=== PATIENT | female | born 1970 | race Caucasian/White ===

== ENCOUNTER 2018-04-19 06:31 | Observation (INO) ==
[2018-04-20] MEDS ORDERED: MethylPREDNISolone Sod Succinate Inj 125 MG/2 ML Vial ONE (00:02)
[2018-04-20] MEDS ORDERED: diazePAM 5 MG Tablet PO PRN (02:54)
[2018-04-20] MEDS ORDERED: Bisacodyl 10 MG Supp RECTAL PRN (03:07)
[2018-04-20] MEDS ORDERED: Dextrose 50% in Water 50 ML Vial IV.PUSH PRN (03:09)
[2018-04-20] MEDS: MethylPREDNISolone Sod Succinate Inj 125 MG/2 ML Vial IV.PUSH SCH ×3 (07:07→17:55)
[2018-04-20] MEDS: guaiFENesin 600 MG ER Tablet PO SCH ×2 (08:26→22:06)
[2018-04-20] MEDS: Lisinopril 20 MG Tablet PO SCH (08:26)
[2018-04-20] MEDS: Senna/Docusate Sodium 8.6/50 MG Tablet PO SCH ×2 (08:26→22:05)
[2018-04-20] MEDS: Budesonide-Formoterol 160/4.5 MCG 6 GM Inhaler INH SCH ×2 (08:28→22:07)
--- NOTE | 2018-04-20 08:40 | P.PN ---
Subjective Interval history: Follow up for COPD exacerbation. The patient reports feeling slightly better today however still not back to baseline. She reports continue cough, now nonproductive and dry. She reports mild shortness of breath, worse with exertion. She reports continued wheezing. O2 sat has been stable on room air. Denies any chest pain. Denies any other medical complaints at this time. Physical Exam Vital signs: Vital Signs 04/20/18 03:40 04/20/18 04:35 04/20/18 07:29 Temperature 97.5 F L Pulse Rate 71 98 H 98 H Respiratory Rate 16 20 20 Blood Pressure 138/72 Pulse Oximetry 93 L Intake & Output 04/19/18 04/20/18 04/20/18 18:59 06:59 18:59 Weight 125 kg Narrative: GENERAL: Well-nourished, well-developed obese female patient in [facility]. SKIN: Warm and dry. No rash. HEENT: Normocephalic. Atraumatic. Pupils equal and round. Mucous membranes pink and moist. CARDIOVASCULAR: Regular rate and rhythm. No murmur appreciated. RESPIRATORY: No accessory muscle use. Diffuse expiratory wheezing, scattered rhonchi, with diminished breath sounds throughout. Breath sounds equal bilaterally. GASTROINTESTINAL: Abdomen soft, non-tender, nondistended. Normoactive bowel sounds x4. MUSCULOSKELETAL: No obvious deformities. Extremities without clubbing, cyanosis , or edema. NEUROLOGICAL: Awake and alert. No obvious cranial nerve deficits. Motor grossly within normal limits. Normal speech. PSYCHIATRIC: Appropriate mood and affect; insight and judgment normal. Results - Labs CBC & Chem 7: 04/19/18 05:00 04/19/18 05:00 Labs: Laboratory Results - last 24 hr 04/19/18 04/19/18 04/19/18 05:00 05:00 05:00 WBC 8.5 RBC 4.48 Hgb 12.4 Hct 36.2 MCV 80.8 MCH 27.7 MCHC 34.2 RDW 14.3 Plt Count 319 MPV 6.9 L Neut % (Auto) 47.4 Lymph % (Auto) 38.4 [place] % (Auto) 7.1 Eos % (Auto) 6.3 H Baso % (Auto) 0.8 Neut # (Auto) 4.0 Lymph # (Auto) 3.3 [place] # (Auto) 0.6 Eos # (Auto) 0.5 H Baso # (Auto) 0.1 CBC Comment DIFF FINAL Sodium 144 Potassium 3.4 L Chloride 110 H Carbon Dioxide 23.6 Anion Gap 10 BUN 6 L Creatinine 0.60 Estimated GFR 107 Random Glucose 144 H Calcium 8.9 Total Bilirubin 0.4 AST 19 ALT 24 Alkaline Phosphatase 64 B-Natriuretic Peptide 40 Total Protein 6.6 Albumin 2.9 L - Imaging Imagin04/19/18 - CXR with no acute findings Assessment and Plan - Plan 47-year-old female with history of COPD, HTN, DM, JEVON, seizures, anxiety, bipolar disorder, seasonal allergies, presents with 2-3 days of worsening shortness of breath and cough. Acute COPD exacerbation: Patient tachypneic with RR 26 and O2 sat 93% upon arrival. Afebrile, no leukocytosis, however with purulent yellow-green sputum. -CXR images reviewed, no acute findings -With purulent productive cough, will give antibiotics with doxycycline ( allergies to levaquin and azithro) -Continue steroids with IV Solu-Medrol 60mg q6h -Continue duo nebs q4h and q2h prn -Continue Symbicort bid -Mucinex bid, Robitussin prn cough -Incentive spirometry, Acapella -Check sputum culture Hypertension: not well controlled, likely secondary to running out of medications -restart patient's lisinopril 20mg daily -clonidine prn -monitor BP, adjust antihypertensives as needed Diabetes Mellitus, Insulin Dependent: chronic, expect higher blood glucose on steroids -continue patient's levemir 10u sq hs -Monitor Accu-checks and cover with Medium dose SSI -diabetic diet -hypoglycemia protocol Bipolar/Anxiety: chronic -restart patient's home meds including effexor, seroquel, trazodone, valium prn -discussed with the patient importance of obtaining f/up as outpatient with PCP, will refer to [facility] JEVON: Chronic, however patient did not bring her CPAP from [place] -Recommend outpatient follow-up with pulmonology -O2 as needed Seasonal allergies: Chronic -Continue patient's cetirizine DVT prophylaxis: Lovenox Discharge Planning: Discharge pending further clinical improvement, not yet ready for discharge.
[2018-04-20] MEDS: Insulin NovoLOG Aspart Correctional Sugar Inj SQ SCH ×4 (09:05→22:02)
[2018-04-20] MEDS ORDERED: Pneumococcal-23 Polyvalent Vaccine Inj 25 MCG/0.5 ML Syringe IM ONE (10:00)
[2018-04-20 13:54] LABS: Baso % (Auto) 0.3 % (0.0-2.0); Hematocrit 35.9 % (35.0-46.0); Lymph # (Auto) 0.7 th/mm3 (1.0-4.8); Lymph % (Auto) 4.7 % (9.0-44.0); Mean Corpuscular HGB Conc 33.5 % (32.0-36.0); Mean Corpuscular Hemoglobin 27.5 pg (27.0-34.0); Mean Corpuscular Volume 82.1 fL (80.0-100.0); Mean Platelet Volume 7.3 fL (7.0-11.0); Mono # (Auto) 0.6 th/mm3 (0.0-0.9); Mono % (Auto) 4.1 % (0.0-8.0); Neut # (Auto) 12.7 th/mm3 (1.8-7.7); Neut % (Auto) 90.9 % (16.0-70.0); Platelet Count 302 th/mm3 (150-450); Red Blood Count 4.38 mil/mm3 (4.00-5.30); Red Cell Distribution Width 14.7 % (11.6-17.2); White Blood Count 13.9 th/mm3 (4.0-11.0)
[2018-04-20 15:02] VITALS: RESP 18
[2018-04-20 15:27] LABS: Anion Gap 14 meq/L (5-15); Aspartate Aminotransferase 15 U/L (15-37); Blood Urea Nitrogen 9 mg/dL (7-18); Carbon Dioxide 17.6 meq/L (21.0-32.0); Chloride 108 meq/L (98-107); Glomerular Filtration Rate 67 mL/min (>89); Glucose,Random 300 mg/dL (74-106); Potassium 3.7 meq/L (3.5-5.1); Sodium 140 meq/L (136-145)
[2018-04-20 15:28] LABS: Alanine Aminotransferase 26 U/L (10-53); Albumin 2.9 g/dL (3.4-5.0); Alkaline Phosphatase 65 U/L (45-117); Total Protein 6.6 g/dL (6.4-8.2)
[2018-04-20] MEDS: Acetaminophen 325 MG Tablet PO PRN (17:56)
[2018-04-20] MEDS ORDERED: Enoxaparin Inj 40 MG/0.4 ML Syringe SQ SCH (21:00)
[2018-04-20] MEDS ORDERED: Venlafaxine XR 75 MG Capsule PO SCH (21:00)
[2018-04-20] MEDS ORDERED: traZODone 50 MG Tablet PO SCH (21:00)
[2018-04-20] MEDS ORDERED: Insulin Detemir Inj 1,000 UNIT/10 ML Vial SQ SCH (21:00)
[2018-04-21] MEDS: MethylPREDNISolone Sod Succinate Inj 125 MG/2 ML Vial IV.PUSH SCH ×2 (00:51→05:53)
[2018-04-21] MEDS: Acetaminophen 325 MG Tablet PO PRN (08:45)
[2018-04-21] MEDS: Lisinopril 20 MG Tablet PO SCH (08:46)
[2018-04-21] MEDS: guaiFENesin 600 MG ER Tablet PO SCH (08:46)
[2018-04-21] MEDS: Budesonide-Formoterol 160/4.5 MCG 6 GM Inhaler INH SCH (08:46)
[2018-04-21] MEDS: Senna/Docusate Sodium 8.6/50 MG Tablet PO SCH (08:46)
[2018-04-21] MEDS: Insulin NovoLOG Aspart Correctional Sugar Inj SQ SCH (08:47)
--- NOTE | 2018-04-21 15:17 | P.DS ---
Date of admission: 04/19/18 06:32 Primary care physician: UNKNOWN Anticipated date of discharge: 04/21/18 Brief History from admission: 47-year-old female with history of COPD, HTN, DM, JEVON, seizures, anxiety, bipolar disorder, seasonal allergies, presents with 2-3 days of worsening shortness of breath and cough. The patient reports she just moved here from [place] with her daughter. She recently ran out of all of her medications. A few days ago she started to notice worsening shortness of breath, wheezing, and cough productive of yellow-green sputum. Denies fevers/chills, congestion, rhinitis, or sore throat. Denies any chest pain, orthopnea, or lower extremity edema. States she is supposed to be on Advair, albuterol inhalers, and previously had oxygen as needed. She states when she left [place], they also did not allow her to bring her CPAP on the plane. She is currently staying at a [facility] with her daughter. She states she has access to someone else's nebulizer machine, but does not have her own. She is requesting refills of all of her medications. She does not have a PCP or flaker tender in the area. She quit smoking 2 years ago however is exposed to a lot of secondhand smoke at this usp. She has no other medical complaints at this time. DS: Diagnosis - Discharge Diagnosis (1) COPD exacerbation Status: Acute DS: Medications - Discharge Medications Prescriptions: albuterol sulfate [Proventil HFA] 2 puff INHALATION Q6H PRN #1 inh PRN Reason: Shortness Of Breath budesonide-formoterol [Symbicort] 2 puff INH Q12HR #1 inh doxycycline hyclate 100 mg PO BID 6 Days #12 cap lisinopril 20 mg PO DAILY #30 tab prednisone [Deltasone] 20 mg PO DIRECTED #21 tab quetiapine 300 mg PO HS #30 tab tiotropium bromide [Spiriva with HandiHaler] 1 cap INHALATION DAILY 30 Days #1 inh trazodone 50 mg PO HS #30 tab venlafaxine 75 mg PO HS #30 tab DS: Summary Hospital Course: 47-year-old female with history of COPD, HTN, DM, JEVON, seizures, anxiety, bipolar disorder, seasonal allergies, presents with 2-3 days of worsening shortness of breath and cough. Acute COPD exacerbation: Patient tachypneic with RR 26 and O2 sat 93% upon arrival. Afebrile, no leukocytosis, however with purulent yellow-green sputum. CXR images reviewed, no acute findings. With purulent productive cough, will give antibiotics with doxycycline (allergies to levaquin and azithro). Continue steroids with IV Solu-Medrol 60mg q6h. Continue duo nebs q4h and q2h prn. Continue Symbicort bid. Mucinex bid, Robitussin prn cough. Incentive spirometry , Acapella. Symptoms much improved throughout admission. O2 sat stable on room air. Ready for discharge. Case management to assist with filling prescriptions prior to discharge. Hypertension: not well controlled, likely secondary to running out of medications. Restart patient's lisinopril 20mg daily. Clonidine prn. Monitor BP , adjust antihypertensives as needed. Stable. F/up with PCP. Diabetes Mellitus, Insulin Dependent: chronic, expect higher blood glucose on steroids. Continue patient's levemir 10u sq hs. Monitor Accu-checks and cover with Medium dose SSI. Diabetic diet. Hypoglycemia protocol. F/up with PCP. Bipolar/Anxiety: chronic. Restart patient's home meds including effexor, seroquel, trazodone, valium prn. Discussed with the patient importance of obtaining f/up as outpatient with PCP, will refer to [facility]. JEVON: Chronic, however patient did not bring her CPAP from [place]. Recommend outpatient follow-up with pulmonology. O2 as needed. Seasonal allergies: Chronic. Continue patient's cetirizine Noncompliance: patient out of all medications. Again thoroughly counseled on following up with PCP and taking medications as prescribed. Case management consulted and was able to provide filled prescriptions for the patient at discharge. - Time Spent with Patient Total time spent providing and/or coordinating discharge services: Greater than 30 minutes Exam Vital signs: Vital Signs 04/20/18 15:01 04/20/18 22:31 04/21/18 00:16 Temperature 98.7 F Pulse Rate 78 83 105 H Respiratory Rate 18 17 16 Blood Pressure 145/71 H Pulse Oximetry 94 L 04/21/18 01:27 04/21/18 05:18 04/21/18 07:28 Temperature 98.4 F 98.9 F 97.4 F L Pulse Rate 80 82 80 Respiratory Rate 16 16 18 Blood Pressure 150/80 H 116/57 L 145/102 H Pulse Oximetry 93 L 94 L 98 04/21/18 07:48 04/21/18 12:16 Temperature 97.6 F Pulse Rate 84 79 Respiratory Rate 17 18 Blood Pressure 174/97 H Pulse Oximetry 97 Intake & Output 04/20/18 04/21/18 04/21/18 18:59 06:59 18:59 Weight 114.4 kg Other: # Voids 4 Date of Last Bowel Movement 04/20/18 04/21/18 Narrative: GENERAL: Well-nourished, well-developed obese female patient in [facility]. SKIN: Warm and dry. No rash. HEENT: Normocephalic. Atraumatic. Pupils equal and round. Mucous membranes pink and moist. CARDIOVASCULAR: Regular rate and rhythm. No murmur appreciated. RESPIRATORY: No accessory muscle use. Clear to auscultation today, much improved. Breath sounds equal bilaterally. GASTROINTESTINAL: Abdomen soft, non-tender, nondistended. Normoactive bowel sounds x4. MUSCULOSKELETAL: No obvious deformities. Extremities without clubbing, cyanosis , or edema. NEUROLOGICAL: Awake and alert. No obvious cranial nerve deficits. Motor grossly within normal limits. Normal speech. PSYCHIATRIC: Appropriate mood and affect; insight and judgment normal. Results Procedures completed during hospitalization: None. Labs on day of discharge: Labs from last 24 hours 04/21/18 04/20/18 04/20/18 08:25 21:56 12:23 Sodium 140 Potassium 3.7 Chloride 108 H Carbon Dioxide 17.6 L Anion Gap 14 BUN 9 Creatinine 0.90 Estimated GFR 67 L POC Glucose 186 H 349 H Random Glucose 300 H Calcium 9.0 Total Bilirubin 0.2 AST 15 ALT 26 Alkaline Phosphatase 65 Total Protein 6.6 Albumin 2.9 L Discharge Plan - Discharge Disposition Patient Disposition: Discharge Home - Discharge Condition Condition: Stable - Discharge Order Discharge Orders: Discharge Order (Routine); Ordered 04/21/18 Ordered By: Alicia Chatterjee - Discharge Details Anticipated Discharge Date: 04/21/18 Discharge Comment: Ok to discharge after seen by case management. - Physicians Team Primary Care Provider: UNKNOWN, Attending Provider: Padma Mahoney - Rxs /Orders / Referrals /Forms Prescriptions: New budesonide-formoterol [Symbicort] 160-4.5 mcg/actuation Hfa Aerosol Inhaler 2 puff INH Q12HR Qty: 1 RF: 2 doxycycline hyclate 100 mg Capsule 100 mg PO BID 6 Days Qty: 12 RF: 0 prednisone [Deltasone] 20 mg Tablet 20 mg PO DIRECTED Qty: 21 RF: 0 Continue albuterol sulfate [Proventil HFA] 90 mcg/actuation Hfa Aerosol Inhaler 2 puff INHALATION Q6H PRN (Reason: Shortness Of Breath) Qty: 1 RF: 2 bismuth subsalicylate 262 mg Tablet,Chewable 2 tab PO Q1H PRN (Reason: upset stomach) cetirizine 10 mg Tablet,Chewable 10 mg PO DAILY diazepam 5 mg Tablet 5 mg PO BID PRN (Reason: Anxiety) gabapentin 300 mg Capsule 300 mg PO TID insulin detemir U-100 100 unit/mL Solution 10 unit SUB-Q HS ipratropium-albuterol 0.5 mg-3 mg(2.5 mg base)/3 mL Solution For Nebulization 3 ml INHALATION Q4H lisinopril 20 mg Tablet 20 mg PO DAILY Qty: 30 RF: 2 pantoprazole 40 mg Tablet,Delayed Release (Dr/Ec) 40 mg PO DAILY quetiapine 300 mg Tablet 300 mg PO HS Qty: 30 tiotropium bromide [Spiriva with HandiHaler] 18 mcg Capsule, W/Inhalation Device 1 cap INHALATION DAILY 30 Days Qty: 1 RF: 2 trazodone 50 mg Tablet 50 mg PO HS Qty: 30 venlafaxine 75 mg Tablet 75 mg PO HS Qty: 30 Discontinued clonidine HCl 0.3 mg Tablet 0.3 mg PO TID fluticasone-salmeterol 500-50 mcg/dose Blister With Device 1 inh INHALATION BID ipratropium-albuterol 20-100 mcg/actuation Mist 1 puff INHALATION QID losartan 50 mg Tablet 50 mg PO DAILY prednisone 20 mg Tablet 20 mg PO BID promethazine 25 mg Tablet 25 mg PO ONCE Referrals: [facility] [Outside] - See Instructions [Non-Staff] - See Instructions - Discharge Instructions Print Language: Peruvian Patient Printed Instructions: Doxycycline (By mouth), Prednisone (By mouth), Budesonide/Formoterol (By breathing), COPD (Chronic Obstructive Pulmonary Disease) (DC) - Post Discharge Care Plan Care Plan Goals: Discharge Care Plan Goals for COPD You have been diagnosed with chronic obstructive pulmonary disease (COPD). This is a name given to a group of diseases that limit the flow of air in and out of your lungs. This makes it harder to breathe. With COPD, you are also more likely to get lung infections. COPD includes chronic bronchitis and emphysema. COPD is most often caused by heavy, long-term cigarette smoking. Directions to Meet your Goals: 1. Quit smoking: * If you smoke, quit. It is the best thing you can do for your COPD and your overall health. * Join a stop-smoking program. There are even telephone, text message, and Internet programs to help you quit. * Ask your doctor about medicines or other methods to help you quit. * Ask family members to quit smoking as well. * Don't allow people to smoke in your home, in your car, or when they are around you. 2. Protect yourself from infection: * Wash your hands often. Do your best to keep your hands away from your face. Most germs are spread from your hands to your mouth. * Get a flu shot every year. Also ask your provider about pneumonia vaccines. * Avoid crowds. It's especially important to do this in the winter when more people have colds and flu. * To stay healthy, get enough sleep, exercise regularly, and eat a balanced diet. You should: -Get about 8 hours of sleep every night. -Try to exercise for at least 30 minutes on most days. -Have healthy foods including fruits and vegetables, 100% whole grains, lean meats and fish, and low-fat dairy products. -Try to stay away from foods high in fats and sugar. 3. Take your medicines: * Take your medicines exactly as directed. Don't skip doses. 4. Manage you stress: Stress can make COPD worse. Use this stress management technique: * Find a quiet place and sit or lie in a comfortable position. * Close your eyes and perform breathing exercises for several minutes. 5. Pulmonary rehabilitation: * Pulmonary rehab can help you feel better. These programs include exercise, breathing techniques, information about COPD, counseling, and help for smokers. * Ask your doctor or your local hospital about programs in your area. 6. When to call your doctor: Call doctor immediately if you have any of the following: Shortness of breath, wheezing, or coughing Increased mucus Yellow, green, bloody, or smelly mucus Fever or chills Tightness in your chest that does not go away with rest or medicine An irregular heartbeat or a feeling that your heart is beating very fast Swollen ankles 7. Follow-up: Do Not miss your follow-up appointment. Keep up with all your appointments and yearly check ups - Discharge Interventions Interventions: Discharge Summary Last Done: 04/21/18 12:24 - Discharge Information Discharge Date/Time: 04/21/18 14:48
[2018-04-22 13:02] VITALS: BP 174/97; PULSE 79; TEMP 97.6; O2SAT 97
== END 2018-04-21 14:48 | disposition home or self-care (01) ==
LOC: NEDA 06:31 → NEPHCDU 06:31
PROVIDERS: ADMIT Hospitalist; ATTEND Hospitalist